=== PATIENT | female | born 1970 | race Caucasian/White ===

== ENCOUNTER 2016-12-19 05:50 | Day surgery (SDC) | payer OTHER ==
[~2016-12-19] VITALS: Ht 157.5 cm; Wt 68.0 kg
[~2016-12-19 05:50] MED LIST: PROBIOTIC1 EAC1 PO
[2016-12-19] MEDS ORDERED: ZANTAC150 MG PO (06:04)
--- NOTE | 2016-12-19 08:01 | NUR ---
12/19/16 0801 WisamLane murphy SAT 100, O2 DECREASED TO 6L VIA MASK.
--- NOTE | 2017-01-23 07:52 | OR ---
[facility] [address], [place] [address] Signed DATE OF PROCEDURE: 12/19/16 SURGEON: Chayo Kumari MD PREOPERATIVE DIAGNOSES: Endometrial mass, right labial mass. POSTOPERATIVE DIAGNOSES Endometrial mass, right labial mass, probable endometrial fibroid or submucous fibroid and sebaceous cyst of the right labia. PROCEDURES Hysteroscopy, resection of endometrial mass, excision of labial mass. ANESTHESIA: MAC. ESTIMATED BLOOD LOSS: 10 mL. DRAINS: None. INDICATIONS AND FINDINGS The patient is a 46-year-old female, 5, para 3, ectopic 1, SAB 1 who was found to have an endometrial mass on evaluation for abdominal discomfort and bloating. She has been using the Mirena for control and has had minimal bleeding. The IUD appeared to be appropriately placed, but the endometrial cavity appeared to have a significant mass with blood flow. She also has had a right lower labial mass for the last several years and she desired this to be removed as well. At the time of surgery, exam under anesthesia revealed a normal-size uterus. The IUD strings were visible. On inspecting the cavity of the uterus, it appeared to be atrophic other than a large polypoid mass which is fairly firm consistent with a probable fibroid. She had approximately 2 cm mass in the right lower labia which was filled with sebaceous material and completely excised. PROCEDURE IN DETAIL The patient was prepped and draped in the dorsal lithotomy position. A weighted speculum was placed and the anterior lip of the cervix was visualized and grasped with a single-tooth tenaculum. The Mirena IUD was removed and placed on the back table for safe keeping. The endometrial cavity was sounded to 9 cm. The endocervical canal was then dilated to a #8 dilator. The MyoSure device was placed using saline as a medium. The cavity was evaluated and a large polyp was seen. Following this, the MyoSure reach was introduced and this mass was removed almost completely, though it got to the point where it was very difficult to actually remove the remaining sections as the mass was fairly floppy. Following this, the device was removed from the uterus and polyp forceps were Electronically Signed By: CHAYO KUMARI MD 01/23/17 0752 PATIENT NAME: BOO SHULTZ OPERATIVE REPORT DATE OF : 72 PHYSICIAN: CHAYO KUMARI MD REPORT #: [id number] REPORT IS CONFIDENTIAL AND NOT TO BE RELEASED WITHOUT AUTHORIZATION [facility] [address], [place] [address] Signed introduced and polyp fragments were removed from the uterus. The cavity was reexamined and there appeared to be a free-floating area in the cavity consistent with the polyp. The MyoSure was removed again and polyp forceps were placed and this part was removed as well. The cavity was then reinspected and appeared to have a complete removal of the endometrial mass. There was no evidence of excessive bleeding from the base. The flow was turned down and there was no evidence of significant blood loss and this portion of the procedure was then terminated. The speculum was removed as was the tenaculum. However, prior to this, the IUD which had been previously removed was replaced using the polyp forceps. The string was visible at the conclusion. Following this, the perineal mass was removed. The area around the mass was injected with 0.5% Marcaine with Epi. An incision was made overlying the cyst with a knife. At that point, sebaceous material began draining. This was completely drained and the capsule of the cyst was grasped with an Allis clamp and was excised from the overlying skin with sharp dissection. This was not sent to Pathology. Following this, the base of the defect was treated with cautery. Deep sutures of 2-0 Vicryl were placed. Following this, skin incisions were reapproximated with interrupted sutures of 3-0 Vicryl. All sponge and needle counts were correct. She tolerated the procedure well, was taken to the recovery room in good condition. Chayo Kumari MD PJW/Modl /[id number] cc: Sammy Edwards MD Electronically Signed By: CHAYO KUMARI MD 01/23/17 0752 PATIENT NAME: BOO SHULTZ OPERATIVE REPORT DATE OF : 72 PHYSICIAN: CHAYO KUMARI MD REPORT #: [id number] REPORT IS CONFIDENTIAL AND NOT TO BE RELEASED WITHOUT AUTHORIZATION
== END 2016-12-19 08:40 | disposition home or self-care (01) ==
LOC: OPS 05:50 → DS 05:50
PROVIDERS: Obstetrics & Gynecology
PROC: 0UB98ZX Excision of Uterus, Via Natural or Artificial Opening Endoscopic, Diagnostic (ICD-10-PCS; principal; 2016-12-19 06:45)
PROC: 0UDB8ZX Extraction of Endometrium, Via Natural or Artificial Opening Endoscopic, Diagnostic (ICD-10-PCS; 2016-12-19 06:45)
DX: N85.8 Other specified noninflammatory disorders of uterus (principal); K21.9 Gastro-esophageal reflux disease without esophagitis; Z90.49 Acquired absence of other specified parts of digestive tract; Z98.890 Other specified postprocedural states; Z87.891 Personal history of nicotine dependence
CPT/HCPCS: 00952; J1100; J1885; J2250; J2405; J2704; J2765; J3010; J7120

== ENCOUNTER 2017-08-16 17:28 | Emergency (ER) | payer OTHER ==
[~2017-08-16] VITALS: Ht 157.5 cm; Wt 62.6 kg
[~2017-08-16 17:28] MED LIST changes: +ZANTAC150 MG PO
[2017-08-16] MEDS ORDERED: MULTIPLE VITAM1 EACH PO (17:37)
[2017-08-16] MEDS ORDERED: CALCIUM + D SO1 EACH PO (17:37)
[2017-08-16] MEDS ORDERED: KEFLEX500 MG PO (18:38)
[2017-08-16] MEDS ORDERED: NORCO 5-325 TA1 EACH PO (18:38)
== END 2017-08-16 19:33 | disposition home or self-care (01) ==
LOC: ED 17:28
PROC: 3E0T3BZ Introduction of Anesthetic Agent into Peripheral Nerves and Plexi, Percutaneous Approach (ICD-10-PCS; principal; 2017-08-16)
DX: S92.421A Displaced fracture of distal phalanx of right great toe, initial encounter for closed fracture (principal); Z87.891 Personal history of nicotine dependence; Z79.899 Other long term (current) drug therapy; W20.8XXA Other cause of strike by thrown, projected or falling object, initial encounter
CPT/HCPCS: 64450; 73660; 90471; 90715; 99283